=== PATIENT | male | born 1955 | race Caucasian/White ===

== ENCOUNTER 2017-03-04 14:44 | Emergency (ER) | payer BC ==
[2017-03-04 15:09] VITALS: BP 146/101
--- NOTE | 2017-03-04 15:29 | UC ---
Throat Pain/Nasal Alex HPI - History of Current Complaint Chief Complaint: UCRespiratory Stated Complaint: SORE THROAT Time Seen by Provider: 03/04/17 15:17 Hx Obtained From: Patient Onset/Duration: Gradual Onset - has had ST for 4 days, was dx strep throat 3 days ago. Severity: Worse Since: - today Associated Signs & Symptoms: Positive: Negative. Negative: Sinus Discomfort, Nasal Discharge, Fever, Rash - Allergies/Home Medications Allergies/Adverse Reactions: Allergies Allergy/AdvReac Type Severity Reaction Status Date / Time No Known Allergies Allergy Verified 03/04/17 15:08 Home Medications: Home Medications Phenylephrine-Chlorpheniramine [Edilia-[place] Plus Severe 5-2-10-250 mg] 1 tab PO PRN 03/04/17 [History] PMH/Surg Hx/FS Hx/Imm Hx Previously Healthy: Yes Cardiovascular History: Hypertension - Surgical History Surgical History: Yes Surgery Procedure, Year, and Place: ganglion cyst left hand, exploratory colonoscopy, nasal polyps removal, tonsils, righ shoulder - Family History Known Family History: Positive: None - Social History Occupation: Employed Full-time Lives: With Family Alcohol Use: Occasionally Alcohol Amount: 24 [employer] WINE/DAY Substance Use Type: None Smoking Status (MU): Former Smoker Review of Systems Constitutional: Negative ENT: Sore Throat Respiratory: Negative Cardiovascular: Negative Neurological: Negative Psychological: Negative All Other Systems Reviewed And Are Negative: Yes Physical Exam Triage Information Reviewed: Yes Appearance: Well-Appearing, No Pain Distress, Well-Nourished Vital Signs: Initial Vital Signs Temp 98.2 F 03/04/17 15:03 Pulse 81 03/04/17 15:03 Resp 16 03/04/17 15:03 BP 146/101 03/04/17 15:03 Pulse Ox 96 03/04/17 15:03 Vital Signs Reviewed: Yes Eyes: Positive: Conjunctiva Clear ENT: Positive: Pharyngeal erythema, TMs normal Neck exam: Normal Neck: Positive: No Lymphadenopathy Respiratory Exam: Normal Cardiovascular Exam: Normal Neurological Exam: Normal Psychological Exam: Normal Skin Exam: Normal Skin: Negative: rashes Throat Pain/Nasal Course/Dx - Differential Dx/Diagnosis Differential Diagnosis/HQI/PQRI: Pharyngitis, Tonsillitis, URI, Other - strep Provider Diagnoses: pharyngitis Discharge - Discharge Plan Condition: Good Disposition: HOME Prescriptions: Azithromycin TAB* [Zithromax TAB (Z-[place]UST[place]) 250 mg #6 tabs] 2 tab PO .TODAY, THEN 1 DAILY #1 [place] Referrals: Lawrence Gamble MD [Primary Care Provider] - 2 Days (if no better) Additional Instructions: drink plenty of fluids and use over the counter tylenol for pain and fever take z-augusta as rx'd
== END 2017-03-04 16:06 | disposition home or self-care (01) ==
LOC: UCEAST 14:44
DX: J02.9 Acute pharyngitis, unspecified (principal); I10 Essential (primary) hypertension; Z87.891 Personal history of nicotine dependence
CPT/HCPCS: 87651; 99212; G0463